=== PATIENT | female | born 2000 | race Caucasian/White ===

== ENCOUNTER 2023-08-10 20:59 | Emergency (ER) | payer SELFPAY ==
[~2023-08-10] VITALS: Ht 170.2 cm; Wt 69.0 kg
[2023-08-10 21:15] VITALS: BP 116/78; PULSE 108; RESP 14; TEMP 97.9; O2SAT 98
[2023-08-10 21:49] LABS: HEMOGLOBIN. 14.8 g/dL (12.0-16.0); MEAN CORPUSCULAR HEMOGLOBIN 30.9 pg (28.0-32.0); MEAN CORPUSCULAR HGB CONC 34.4 g/dL (31.0-37.0); MEAN CORPUSCULAR VOLUME 90.1 fL (81.0-99.0); MEAN PLATELET VOLUME 7.4 fl (7.4-10.4); PLATELET 188 x1000/uL (130-400); RED BLOOD CELL COUNT 4.78 mill/uL (4.2-5.4); RED CELL DISTRIBUTION WIDTH 13.4 % (11.6-14.6); WHITE BLOOD COUNT 3.9 x1000/uL (4.5-11.0)
[2023-08-10 21:50] LABS: DIFFERENTIAL COMMENT 1
[2023-08-10 22:01] LABS: CHLORIDE 108 mEq/L (98-107); INDEX HEMOLYSI 1 (1-3); INDEX ICTERIC 1 (1-4); INDEX LIPEMIC 1 (1-3); POTASSIUM 3.5 mEq/L (3.5-5.1); SODIUM 139 mEq/L (136-145)
[2023-08-10 22:05] LABS: HCG SCREEN NEGATIVE
[2023-08-10 22:11] LABS: ALANINE AMINOTRANSFERASE 40 IU/L (13-61); ASPARTATE AMINOTRANSFERASE 26 IU/L (15-37); BILIRUBIN TOTAL 0.7 mg/dL (0.1-1.0); CALCIUM 8.7 mg/dL (8.5-10.1); CARBON DIOXIDE 22 mEq/L (21-32); CREATININE 0.6 mg/dL (0.6-1.3); GLUCOSE 144 mg/dL (70-105); PROTEIN TOTAL 8.2 g/dL (6.0-8.3); UREA NITROGEN BLOOD 11 mg/dL (7-21)
[2023-08-10 22:18] LABS: PLATELET ESTIMATE NORMAL
== END 2023-08-11 01:31 | disposition home or self-care (01) ==
LOC: ER 20:59
DX: F10.129 Alcohol abuse with intoxication, unspecified (principal); Y90.0 Blood alcohol level of less than 20 mg/100 ml; Z00.00 Encounter for general adult medical examination without abnormal findings
CPT/HCPCS: 36415; 80053; 84703; 85025; 99283